=== PATIENT | female | born 1985 | race Caucasian/White ===

== ENCOUNTER 2018-02-10 11:00 | Emergency (ER) | payer OTHER ==
[~2018-02-10] VITALS: Ht 162.6 cm; Wt 93.0 kg
[2018-02-10] MEDS ORDERED: KETOROLAC 30 MG/ML VIAL IVP STA (11:38)
--- NOTE | 2018-02-10 11:55 | ED Lower Extremity ---
General Chief Complaint: Lower Extremity Stated Complaint: LT HIP 'FROZEN' Nursing Triage Note: Pt ambulated to rm 3 with an obvious limp. Pt states she started having muscle spasms in the L hip on Sunday and is now having difficulty walking and bearing weight on that leg. Pt states she took her husbands flexeril and her mother's tylenol 3 and has not received relief from either. Pt denies injury. Nursing Sepsis Screen: No Definite Risk Source: patient Exam Limitations: no limitations History of Present Illness Date Seen by Provider: Feb 10, 2018 Time Seen by Provider: 11:30 Initial Comments Here with report of left groin pain and pain when flexing the left leg at the hip. Denies injury. Onset a few days ago and has worsened dated today. She did play softball right before that but does not remember injuring herself. She is 3 months . Does describe pain that is no significant change of position to the area of the left groin and heaviness of the left leg. She states that she also gets numbness of the left leg occasionally. She did try to take a Flexeril and Tylenol 3 and that did not help her pain or spasms to the area of concern. Denies breathing problems. Is able to walk but hurts when for moving her leg. Onset: other (3 days) Severity: moderate Pain/Injury Location: left hip, left leg Method of Injury: unknown Modifying Factors: Improves With Immobilization; Worse With Movement Allergies and Home Medications Allergies Coded Allergies: Penicillins (Verified Allergy, Unknown, 02/10/18) Patient Home Medication List Home Medication List Reviewed: Yes Constitutional: see HPI; No chills, No fever Respiratory: no symptoms reported; No dyspnea on exertion, No short of breath Cardiovascular: No edema, No palpitations Gastrointestinal: No abdominal pain, No vomiting Genitourinary: No dysuria, No pain Musculoskeletal: joint pain, muscle pain Skin: no symptoms reported Past Jfiaroe-Yjwcai-Qxmatg Hx Past Med/Social Hx: Reviewed Nursing Past Med/Soc Hx Patient Social History Alcohol Use: Denies Use Recreational Drug Use: No 2nd Hand Smoke Exposure: No Recent Foreign Travel: No Contact w/Someone Who Travel: No Recent Infectious Disease Expo: No Recent Hopitalizations: No Physical Abuse: No Sexual Abuse: No Seasonal Allergies Seasonal Allergies: No Past Medical History Surgeries: Yes Section Respiratory: No Cardiac: No Neurological: No Genitourinary: No Gastrointestinal: No Musculoskeletal: No Endocrine: No HEENT: No Cancer: No Psychosocial: No Nursing Suicide Risk Score: 0 Integumentary: No Blood Disorders: No Adverse Reaction/Blood Tranf: No Family Medical History Reviewed Nursing Family Hx Physical Exam Vital Signs Vital Signs - First Documented 02/10/18 11:05 Temp 97.2 Pulse 84 Resp 12 B/P (MAP) 136/98 (111) Pulse Ox 100 O2 Delivery Room Air Capillary Refill : Less Than 3 Seconds Height, Weight, BMI Height: 5'4.00" Weight: 205lbs. oz. 92.582312pj; BMI Method:Stated General Appearance: WD/WN, no apparent distress Cardiovascular: regular rate, rhythm, no murmur Respiratory: lungs clear, normal breath sounds Gastrointestinal: non tender, soft Back: normal inspection, no CVA tenderness, no vertebral tenderness Hips: right hip non-tender, right hip normal inspection, right hip normal range of motion; left hip other (tender at the area of the left groin along the crease. Tender centrally over the inguinal canal area.) Legs: bilateral leg non-tender, bilateral leg normal inspection, bilateral leg normal range of motion, bilateral leg no evidence of injury Neurologic/Psychiatric: alert, oriented x 3 Skin: normal color, warm/dry Obvious swelling of the legs and legs appear similar bilateral. Color similar between both legs. Progress/Results/Core Measures Results/Orders Lab Results Laboratory Tests Test 02/10/18 11:42 Range/Units D-Dimer 0.44 0.00-0.49 UG/ML My Orders Orders - WADE HAMILTON MD Fibrin Degradation Products (02/10/18 11:38) Ketorolac Injection (Toradol Injection) (02/10/18 11:38) Saline Lock/Iv-Start (02/10/18 11:38) Vital Signs/I&O 02/10/18 11:05 Temp 97.2 Pulse 84 Resp 12 B/P (MAP) 136/98 (111) Pulse Ox 100 O2 Delivery Room Air Blood Pressure Mean: 111 Progress Progress Note : Progress Note Seen and evaluated. Pain is centered around the left groin. While this may be groin strain, there is concerns with symptoms related to DVT. We will check d- dimer in the setting of surgery and delivery 3 months ago. Patient agrees. IV established. Toradol 30 mg IV for pain that she reports is quite significant. Monitor patient. 1226: Overall better after Toradol. D-dimer negative. Discharged home with return precautions. Patient verbalize understanding instructions and agreement with plan. Departure Impression Primary Impression: Strain of left inguinal muscle Qualified Codes: S39.013A - Strain of muscle, fascia and tendon of pelvis, initial encounter Disposition: HOME, SELF-CARE Condition: Improved Departure-Patient Inst. Decision time for Depature: 12:27 Referrals: NO,LOCAL PHYSICIAN (PCP/Family) Primary Care Physician Patient Instructions: Lower Extremity Muscle Strain (DC) Add. Discharge Instructions: All discharge instructions reviewed with patient and/or family. Voiced understanding. Take medications as directed. Follow-up with your Dr. in a few days for recheck. Return for worse pain, swelling, weakness, breathing problems or other concerns as needed. You may take Tylenol/acetaminophen 1000 mg every 8 hours as needed for pain. Scripts Ketorolac Tromethamine (Ketorolac Tromethamine) 10 Mg Tablet 10 MG PO Q6H, #10 TAB Prov: WADE HAMILTON MD 02/10/18 Cyclobenzaprine HCl (Cyclobenzaprine HCl) 10 Mg Tablet 10 MG PO Q8H PRN for SPASMS, #15 TAB 0 Refills Prov: WADE HAMILTON MD 02/10/18 WADE HAMILTON MD Feb 10, 2018 11:55
[2018-02-10] MEDS ORDERED: KETO10TA PO (12:31)
[2018-02-10] MEDS ORDERED: CYCL10TA9 PO (12:31)
== END 2018-02-10 12:35 | disposition home or self-care (01) ==
LOC: MERGE 11:03 → ER 11:03
DX: S39.013A Strain of muscle, fascia and tendon of pelvis, initial encounter (principal); Z88.0 Allergy status to penicillin; Z87.59 Personal history of other complications of pregnancy, childbirth and the puerperium; X58.XXXA Exposure to other specified factors, initial encounter; Y93.64 Activity, baseball
CPT/HCPCS: 36415; 85379